=== PATIENT | female | born 1975 | race Caucasian/White ===

== ENCOUNTER 2018-08-09 19:16 | Inpatient (IN) | payer SELFPAY ==
[~2018-08-09] VITALS: Ht 165.1 cm; Wt 67.0 kg
[~2018-08-09 19:16] MED LIST: HYOS0.1216 PO; NITR100C3 PO; PHEN200T27 PO
--- OUTSIDE RECORDS SUMMARY | 2018-08-09 19:21 | XMS REPORT ---
Author Author SHLOMO MOTT [facility] Address [address] [place] [address] Care Team Providers Care Appellate Law Clerk Name Role Phone SHLOMO MOTT Unavailable PROBLEMS Unknown Problems ALLERGIES No Information ENCOUNTERS Encounter Location Date Diagnosis [facility] [id number] [place] [address] 50503- 0111 Oct, [facility] [id number] [place] [address] 28147- 8937 Oct, [facility] [id number] [place] [address]70- 2722 September, [facility] [id number] [place] [address] 39447- 7575 May, [facility] [id number] [place] [address] 96963- 9628 Mar, Bilateral acute otitis media H66.93 ; Vertigo R42 and Acute non-recurrent maxillary sinusitis J01.00 [facility] [id number] [place] [address] 84178- 0679 May, [facility] [id number] [place] [address] 25157- 4634 Mar, [facility] [id number] [place] [address] 17725- 2693 Mar, [facility] [id number] [place] [address] 15218- 7285 Feb, [facility] [id number] [place] [address] 24228- 6698 Apr, [facility] [id number] [place] [address] 09214- 4596 Apr, [facility] [address] [facility] [id number] [place] [address] Apr, [facility] [address] [facility] [id number], [place] [address] Apr, [facility] [address] [facility] [id number], [place] [address] Apr, IMMUNIZATIONS No Known Immunizations SOCIAL HISTORY Never Assessed REASON FOR VISIT Schedule Eye Exam PLAN OF CARE VITAL SIGNS MEDICATIONS Unknown Medications RESULTS No Results PROCEDURES No Known procedures INSTRUCTIONS MEDICATIONS ADMINISTERED No Known Medications
--- OUTSIDE RECORDS SUMMARY | 2018-08-09 19:21 | XMS REPORT ---
Author Author SHLOMO MOTT [facility] Address [address] [place] [address] Care Team Providers Care Manager Architecture Name Role Phone SHLOMO MOTT Unavailable PROBLEMS Unknown Problems ALLERGIES No Information ENCOUNTERS Encounter Location Date Diagnosis [facility] [id number] [place] [address] 97617- [phone] Oct, [facility] [id number] [place] [address] 10102- 9407 Oct, [facility] [id number] [place] [address] 39603- 4543 September, [facility] [id number] [place] [address] 31964- 2196 May, [facility] [id number] [place] [address] 16022- 4879 Mar, Bilateral acute otitis media H66.93 ; Vertigo R42 and Acute non-recurrent maxillary sinusitis J01.00 [facility] [id number] [place] [address] 36504- 6732 May, [facility] [id number] [place] [address] 61596- 9598 Mar, [facility] [id number] [place] [address] 75250- 1237 Mar, [facility] [id number] [place] [address] 23283- 6787 Feb, [facility] [id number] [place] [address] 00467- 8264 Apr, [facility] [id number] [place] [address] 81779- 0106 Apr, [facility] [address] [facility] [id number] [place] [address] 7986 Apr, [facility] [address] [facility] [id number], [place] [address] 49[address] Apr, [facility] [address] [facility] [id number], [place] [address] 3156 Apr, IMMUNIZATIONS No Known Immunizations SOCIAL HISTORY Never Assessed REASON FOR VISIT Eye Exam PLAN OF CARE VITAL SIGNS MEDICATIONS Unknown Medications RESULTS No Results PROCEDURES No Known procedures INSTRUCTIONS MEDICATIONS ADMINISTERED No Known Medications
--- OUTSIDE RECORDS SUMMARY | 2018-08-09 19:21 | XMS REPORT ---
Author Author SHLOMO MOTT [facility] Address [address] [place] [address] Care Team Providers Care Radio Frequency Design Engineer Name Role Phone SHLOMO MOTT Unavailable PROBLEMS Unknown Problems ALLERGIES No Information ENCOUNTERS Encounter Location Date Diagnosis [facility] [id number] [place] [address] 63610- 8626 Oct, [facility] [id number] [place] [address] 26932- 9842 Oct, [facility] [id number] [place] [address] 15196- 1228 September, [facility] [id number] [place] [address] 32142- 1761 May, [facility] [id number] [place] [address] 01419- 7534 Mar, Bilateral acute otitis media H66.93 ; Vertigo R42 and Acute non-recurrent maxillary sinusitis J01.00 [facility] [id number] [place] [address] 84059- 5235 May, [facility] [id number] [place] [address] 98108- 7453 Mar, [facility] [id number] [place] [address] 12944- 1606 Mar, [facility] [id number] [place] [address] 47452- 2691 Feb, [facility] [id number] [place] [address] 82316- 6583 Apr, [facility] [id number] [place] [address] 11268- 2206 Apr, [facility] [address] [facility] [id number] [place] [address]- 0866 Apr, [facility] [address] [facility] [id number], [place] [address] 5486 Apr, [facility] [address] [facility] [id number], [place] [address] 6552 Apr, IMMUNIZATIONS No Known Immunizations SOCIAL HISTORY Never Assessed REASON FOR VISIT Requests return call PLAN OF CARE VITAL SIGNS MEDICATIONS Unknown Medications RESULTS No Results PROCEDURES No Known procedures INSTRUCTIONS MEDICATIONS ADMINISTERED No Known Medications
--- OUTSIDE RECORDS SUMMARY | 2018-08-09 19:21 | XMS REPORT ---
Author Author SHLOMO MOTT [facility] Address [address] [place] [address] Care Team Providers Care Print Binding And Finishing Worker Name Role Phone SHLOMO MOTT Unavailable PROBLEMS Unknown Problems ALLERGIES No Information ENCOUNTERS Encounter Location Date Diagnosis [facility] [id number] [place] [address] 03454- 9500 Oct, [facility] [id number] [place] [address] 17462- 4061 Oct, [facility] [id number] [place] [address] 84973- 8460 September, [facility] [id number] [place] [address] 25275- 0591 May, [facility] [id number] [place] [address] 27585- 1297 Mar, Bilateral acute otitis media H66.93 ; Vertigo R42 and Acute non-recurrent maxillary sinusitis J01.00 [facility] [id number] [place] [address] 30761- 0116 May, [facility] [id number] [place] [address] 94570- 7976 Mar, [facility] [id number] [place] [address] 98460- 4099 Mar, [facility] [id number] [place] [address] 73446- 2106 Feb, [facility] [id number] [place] [address] 71931- 2740 Apr, [facility] [id number] [place] [address] 52780- 4506 Apr, [facility] [address] [facility] [id number] [place] [address]- 4286 Apr, [facility] [address] [facility] [id number], [place] [address]- 9976 Apr, [facility] [address] [facility] [id number], [place] [address]- 6879 Apr, IMMUNIZATIONS No Known Immunizations SOCIAL HISTORY Never Assessed REASON FOR VISIT Requests return call PLAN OF CARE VITAL SIGNS MEDICATIONS Unknown Medications RESULTS No Results PROCEDURES No Known procedures INSTRUCTIONS MEDICATIONS ADMINISTERED No Known Medications
--- OUTSIDE RECORDS SUMMARY | 2018-08-09 19:22 | XMS REPORT | Continuity of Care Document ---
Demographics Preferred Language Unknown Marital Status Unknown Christianity Affiliation Unknown Race Unknown Ethnic Group Unknown Author Author [facility] Address Unknown Phone Unavailable Allergies There is no data. Medications There is no data. Problems Date Dx Coded Attending Type Code Diagnosis Diagnosed By 05/08/2011 599.70 HEMATURIA 05/08/2011 724.2 BACK PAIN, LOWER 05/08/2011 599.70 HEMATURIA 05/08/2011 724.2 BACK PAIN, LOWER 05/11/2011 041.02 GBS - UNSPECIFIED SITE 05/11/2011 041.02 GBS - UNSPECIFIED SITE Procedures There is no data. Results There is no data. Encounters ACCT No. Visit Date/Time Discharge Status Pt. Type Provider Facility Loc./Unit Complaint [id number] 05/08/2011 14:27:00 05/08/2011 23:59:59 [facility] Outpatient [id number] 05/08/2011 14:27:00 05/08/2011 23:59:59 [facility] Out[facility] [id number] 10/27/2017 13:40:00 10/27/2017 23:59:59 [facility] Outpatient SHLOMO MOTT [facility]
--- NOTE | 2018-08-09 19:54 | ED EENT ---
History of Present Illness General Stated Complaint: THROAT PAIN AND THROAT SWELLING Source: patient Exam Limitations: no limitations History of Present Illness Date Seen by Provider: Aug 09, 2018 Time Seen by Provider: 19:52 Initial Comments To ER per private vehicle from urgent care with reports of left sided throat pain and swelling for 2 days. She presented there tonight for this complaint and was referred here to the emergency room due to concerns for peritonsillar abscess. No fevers or chills. She is not currently on any antibiotics. Timing/Duration: abrupt Severity: moderate Location: throat Prearrival Treatment: no prearrival treatment Associated Symptoms: denies symptoms Allergies and Home Medications Allergies Coded Allergies: No Known Drug Allergies (Unverified , 08/17/11) Home Medications Hyoscyamine Sulfate 0.125 Mg Tab, 1-2 EACH PO Q4HR PRN, (Reported) Nitrofurantoin Macrocrystal 100 Mg Capsule, 1 CAP PO NEEDED, (Reported) Clcr <60 mL/minute: Contraindicated Phenazopyridine Hcl 200 Mg Tablet, 1 EACH PO TID PRN, (Reported) Patient Home Medication List Home Medication List Reviewed: Yes Review of Systems Review of Systems Constitutional: see HPI; No chills, No fever Eyes: No Symptoms Reported Ears: No Symptoms Reported Nose: no symptoms reported Mouth: no symptoms reported Throat: see HPI, pain, swelling Respiratory: no symptoms reported Cardiovascular: no symptoms reported Musculoskeletal: no symptoms reported Past Wollskx-Kxetda-Mbxnuw Hx Patient Social History Recent Foreign Travel: No Contact w/Someone Who Travel: No Immunizations Up To Date Date of Influenza Vaccine: Feb 21, 2011 Physical Exam Height, Weight, BMI Height: '" Weight: lbs. oz. kg; BMI Method:Stated General Appearance: WD/WN, no apparent distress Eyes: bilateral eye normal inspection, bilateral eye PERRL, bilateral eye EOMI Ears: bilateral ear auricle normal, bilateral ear canal normal, bilateral ear TM normal Mouth/Throat: other (she does have a hot potato voice. The uvula is edematous, just anterior to the superior aspect of left tonsil on the soft palate is erythematous and edema to this as well. No stridor. She is swallowing her own secretions. No trismus, she is able to fully open her mouth and allow good exam. ) Neck: non-tender, full range of motion; No lymphadenopathy (R), No lymphadenopathy (L) Respiratory: no respiratory distress, no accessory muscle use Neurologic/Psychiatric: alert, normal mood/affect, oriented x 3 Skin: normal color, warm/dry Procedures/Interventions I&D : Progress Left peritonsillar abscess area was anesthetized topically with Hurricaine spray. A 27-gauge needle was then attached to a 3 mL syringe full of 2% lidocaine with epinephrine 1 100,000. 0.5 mL of this was used to anesthetize the tissues overlying the area of fluctuance. An 18-gauge 1/2 inch needle guard at 1 cm was then inserted into the area of maximum fluctuance, only a small amount, less than 0.25 mL of purulent bloody material was aspirated. Culture of this was collected and sent to lab. At the end, bleeding was minimal and she's gargling with ice water Progress/Results/Core Measures Results/Orders Lab Results Laboratory Tests Test 08/09/18 20:01 Range/Units White Blood Count 17.9 H 4.3-11.0 10^3/uL Red Blood Count 4.01 L 4.35-5.85 10^6/uL Hemoglobin 7.0 L 11.5-16.0 G/DL Hematocrit 26 L 35-52 % Mean Corpuscular Volume 64 L 80-99 FL Mean Corpuscular Hemoglobin 17 L 25-34 PG Mean Corpuscular Hemoglobin Concent 27 L 32-36 G/DL Red Cell Distribution Width 21.1 H 10.0-14.5 % Platelet Count 393 130-400 10^3/uL Mean Platelet Volume 8.4 7.4-10.4 FL Neutrophils (%) (Auto) 85 H 42-75 % Lymphocytes (%) (Auto) 8 L 12-44 % Monocytes (%) (Auto) 7 0-12 % Eosinophils (%) (Auto) 0 0-10 % Basophils (%) (Auto) 0 0-10 % Neutrophils # (Auto) 15.2 H 1.8-7.8 X 10^3 Lymphocytes # (Auto) 1.5 1.0-4.0 X 10^3 Monocytes # (Auto) 1.2 H 0.0-1.0 X 10^3 Eosinophils # (Auto) 0.0 0.0-0.3 10^3/uL Basophils # (Auto) 0.0 0.0-0.1 10^3/uL Neutrophils % (Manual) 87 % Lymphocytes % (Manual) 8 % Monocytes % (Manual) 3 % Eosinophils % (Manual) 1 % Basophils % (Manual) 0 % Band Neutrophils 1 % Hypochromasia MODERATE Anisocytosis MODERATE Microcytosis MARKED Spherocytes MODERATE Elliptocytes SLIGHT Absolute Reticulocyte Count 84 24-90 10e9/L Percent Reticulocyte Count 2.03 0.50-2.40 % Sodium Level 137 135-145 MMOL/L Potassium Level 3.7 3.6-5.0 MMOL/L Chloride Level 105 98-107 MMOL/L Carbon Dioxide Level 21 21-32 MMOL/L Anion Gap 11 5-14 MMOL/L Blood Urea Nitrogen 9 7-18 MG/DL Creatinine 0.84 0.60-1.30 MG/DL Estimat Glomerular Filtration Rate > 60 BUN/Creatinine Ratio 11 Glucose Level 128 H 70-105 MG/DL Lactic Acid Level 1.36 0.50-2.00 MMOL/L Calcium Level 9.5 8.5-10.1 MG/DL Corrected Calcium 9.3 8.5-10.1 MG/DL Total Bilirubin 0.6 0.1-1.0 MG/DL Aspartate Amino Transf (AST/SGOT) 14 5-34 U/L Alanine Aminotransferase (ALT/SGPT) 12 0-55 U/L Alkaline Phosphatase 77 40-136 U/L Total Protein 7.9 6.4-8.2 GM/DL Albumin 4.3 3.2-4.5 GM/DL Serum Test, Qualitative NEGATIVE NEGATIVE My Orders Orders - LIVAN GUPTA APRN Ct Neck (Soft Tissue) W (08/09/18 19:50) Cbc With Automated Diff (08/09/18 19:50) Comprehensive Metabolic Panel (08/09/18 19:50) Hcg,Qualitative Serum (08/09/18 19:50) Iv Heplock-Insert (Order) (08/09/18 19:50) Clindamycin 900 Mg/50 Ml Ivpb (Cleocin P (08/09/18 20:00) Dexamethasone Injection (Decadron Inject (08/09/18 20:00) Ns Iv 1000 Ml (Sodium Chloride 0.9%) (08/09/18 20:00) Blood Culture (08/09/18 20:03) Lactic Acid Analyzer (08/09/18 20:03) Iohexol Injection (Omnipaque 350 Mg/Ml 1 (08/09/18 20:15) Received Contrast (Hold Metformin- Contr (08/09/18 20:15) Manual Differential (08/09/18 20:01) Red Cells Leukocytes Reduced (08/09/18 20:42) Type And Screen (08/09/18 20:42) Anemia Analyzer (08/09/18 20:01) Fentanyl Injection (Sublimaze Injection (08/09/18 21:15) Lidocaine/Epi 2% 1:100,000 (Xylocaine/Ep (08/09/18 21:15) Benzocaine Extension Tube (Hurricaine Ex (08/09/18 21:28) Medications Given in ED Current Medications Medications Dose Ordered Sig/Scar Route Start Time Stop Time Status Last Admin Dose Admin Benzocaine 1 ea STK-MED ONCE .ROUTE 08/09/18 21:28 08/09/18 21:31 DC 08/09/18 21:31 1 EA Clindamycin Phosphate/Dextrose 50 ml @ 100 mls/hr ONCE ONCE IV 08/09/18 20:00 08/09/18 20:29 DC 08/09/18 20:31 100 MLS/HR Dexamethasone Sodium Phosphate 10 mg ONCE ONCE IV 08/09/18 20:00 08/09/18 20:01 DC 08/09/18 20:34 10 MG Fentanyl Citrate 50 mcg ONCE ONCE IVP 08/09/18 21:15 08/09/18 21:16 DC 08/09/18 21:21 50 MCG Iohexol 75 ml ONCE ONCE IV 08/09/18 20:15 08/09/18 20:18 DC 08/09/18 20:53 75 ML Lidocaine/ Epinephrine 1 ml ONCE ONCE INJ 08/09/18 21:15 08/09/18 21:16 DC 08/09/18 21:21 1 ML Diagnostic Imaging Diagonstic Imaging: CT Comments NAME: TRINA MEDINA Suraj [facility] REC#: [id number] PT STATUS: REG ER : 1975 PHYSICIAN: LIVAN GUPTA APRN ADMIT DATE: 08/09/18/ER Draft Date of Exam:08/09/18 CT NECK (SOFT TISSUE) W PROCEDURE: CT neck soft tissue with contrast. TECHNIQUE: Multiple contiguous axial images were obtained through the neck after the administration of contrast. INDICATION: Difficulty swallowing. COMPARISON: None available. FINDINGS: Peripheral enhancing fluid collection is present adjacent to the left palatine tonsils. This collection measures approximately 1.3 x 1.8 x 2.4 cm and is compatible with peritonsillar abscess. This causes mild effacement of the oropharynx but the oropharyngeal airway remains patent. There is no fluid extending into the retropharyngeal space or upper mediastinum. Multiple enlarged bilateral cervical lymph nodes are active in nature. The largest on the left is a jugulodigastric lymph node measuring 1.3 x 1.1 cm. Thyroid is normal. Lung apices are clear. No concerning osseous lesion in the cervical spine. Orbits are normal where visualized. Trace fluid within the right sphenoid sinus. Mastoid air cells are clear. IMPRESSION: 1. Left peritonsillar abscess mildly narrows but does not compromise the oropharyngeal airway. 2. Bilateral cervical lymphadenopathy should be reactive in nature. Dictated on workstation # [id number] Dict: 08/09/[id number] Trans: 08/09/182125 [facility] [id number] Interpreted by: BRIDGETT ART MD Electronically signed by: Departure Communication (Admissions) Time/Spoke to Admitting Phy: 21:[address] Duong. We'll admit, consult Dr. Albrecht from your nose and throat. Time/Spoke to Consulting Phy: 21:[address] Albrecht, agrees to consult and he will see the patient sometime tomorrow, recommends cefuroxime and Solu-Medrol. Impression Primary Impression: Peritonsillar abscess Additional Impression: Anemia Qualified Codes: D64.9 - Anemia, unspecified Disposition: ADMITTED INPATIENT Condition: Stable Admissions Decision to Admit Reason: Admit from ER (General) Decision to Admit/Date: Aug 09, 2018 Time/Decision to Admit Time: 21:10 Departure-Patient Inst. Referrals: NO,LOCAL PHYSICIAN (PCP) Primary Care Physician LIVAN GUPTA APRN Aug 09, 2018 19:54
[2018-08-09] MEDS ORDERED: NS IV 1000 ML 1,000 ML IV SCH (20:00)
[2018-08-09] MEDS ORDERED: DEXAMETHASONE 10 MG/ML (DECADRON) 1 ML VIAL IV ONE (20:00)
[2018-08-09] MEDS ORDERED: CLINDAMYCIN 900 MG/50 ML IVPB 50 ML IV ONE (20:00)
[2018-08-09] MEDS ORDERED: IOHEXOL 350 MG/ML 100 ML (OMNIPAQUE 350) VIAL IV ONE (20:15)
[2018-08-09] MEDS ORDERED: HOLD METFORMIN - RECEIVED CONTRAST 20 ML VIAL IV SCH (20:15)
[2018-08-09 20:16] LABS: BASOPHILS % (AUTO) 0 % (0-10); EOSINOPHILS % (AUTO) 0 % (0-10); HEMATOCRIT 26 % (35-52); LYMPHOCYTES # (AUTO) 1.5 X 10^3 (1.0-4.0); LYMPHOCYTES % (AUTO) 8 % (12-44); MEAN CORPUSCULAR HEMOGLOBIN 17 PG (25-34); MEAN CORPUSCULAR HGB CONC 27 G/DL (32-36); MEAN CORPUSCULAR VOLUME 64 FL (80-99); MEAN PLATELET VOLUME 8.4 FL (7.4-10.4); MONOCYTES # (AUTO) 1.2 X 10^3 (0.0-1.0); MONOCYTES % (AUTO) 7 % (0-12); NEUTROPHILS # (AUTO) 15.2 X 10^3 (1.8-7.8); NEUTROPHILS % (AUTO) 85 % (42-75); PLATELET COUNT 393 10^3/uL (130-400); RED CELL DISTRIBUTION WIDTH 21.1 % (10.0-14.5); WHITE BLOOD COUNT 17.9 10^3/uL (4.3-11.0)
[2018-08-09 20:31] LABS: ALANINE AMINOTRANSFERASE 12 U/L (0-55); ALBUMIN 4.3 GM/DL (3.2-4.5); ALKALINE PHOSPHATASE 77 U/L (40-136); BILIRUBIN,TOTAL 0.6 MG/DL (0.1-1.0); BUN/CREATININE RATIO 11; CALCIUM 9.5 MG/DL (8.5-10.1); CARBON DIOXIDE 21 MMOL/L (21-32); CHLORIDE 105 MMOL/L (98-107); CREATININE SERUM 0.84 MG/DL (0.60-1.30); GFR ESTIMATED > 60; GLUCOSE 128 MG/DL (70-105); POTASSIUM 3.7 MMOL/L (3.6-5.0); SODIUM 137 MMOL/L (135-145); TOTAL PROTEIN 7.9 GM/DL (6.4-8.2)
[2018-08-09 20:32] LABS: BAND NEUTROPHILS 1 %; BASOPHILS % (MANUAL) 0 %; EOSINOPHILS % (MANUAL) 1 %; LYMPHOCYTES % (MANUAL) 8 %; MONOCYTES % (MANUAL) 3 %; NEUTROPHILS % (MANUAL) 87 %
[2018-08-09 20:33] LABS: ANISOCYTOSIS MODERATE; ELLIPT/OVALOCYTES SLIGHT; HYPOCHROMASIA MODERATE; MICROCYTOSIS MARKED; SPHEROCYTES MODERATE
[2018-08-09 21:01] LABS: HEMATOCRIT 26 % (35-52); MEAN CORPUSCULAR HEMOGLOBIN 17 PG (25-34); MEAN CORPUSCULAR VOLUME 64 FL (80-99); WHITE BLOOD COUNT 17.9 10^3/uL (4.3-11.0)
[2018-08-09 21:02] LABS: BASOPHILS % (AUTO) 0 % (0-10); EOSINOPHILS % (AUTO) 0 % (0-10); LYMPHOCYTES # (AUTO) 1.5 X 10^3 (1.0-4.0); LYMPHOCYTES % (AUTO) 8 % (12-44); MEAN CORPUSCULAR HGB CONC 27 G/DL (32-36); MEAN PLATELET VOLUME 8.4 FL (7.4-10.4); MONOCYTES # (AUTO) 1.2 X 10^3 (0.0-1.0); MONOCYTES % (AUTO) 7 % (0-12); NEUTROPHILS # (AUTO) 15.2 X 10^3 (1.8-7.8); NEUTROPHILS % (AUTO) 85 % (42-75); PLATELET COUNT 393 10^3/uL (130-400); RED CELL DISTRIBUTION WIDTH 21.1 % (10.0-14.5)
[2018-08-09 21:03] LABS: ANISOCYTOSIS MODERATE; BAND NEUTROPHILS 1 %; BASOPHILS % (MANUAL) 0 %; ELLIPT/OVALOCYTES SLIGHT; EOSINOPHILS % (MANUAL) 1 %; HYPOCHROMASIA MODERATE; LYMPHOCYTES % (MANUAL) 8 %; MICROCYTOSIS MARKED; MONOCYTES % (MANUAL) 3 %; NEUTROPHILS % (MANUAL) 87 %; SPHEROCYTES MODERATE
[2018-08-09 21:07] LABS: ABSOLUTE RETIC # 84 10e9/L (24-90); RETICULOCYTE % 2.03 % (0.50-2.40)
[2018-08-09] MEDS ORDERED: LIDOCAINE/EPI 2% 1:100,00 (XYLOCAINE) 20 ML VIAL INJ ONE (21:15)
[2018-08-09] MEDS ORDERED: fentaNYL INJECTION 100 MCG/2 ML AMP IVP ONE ×2 (21:15→22:15)
--- NOTE | 2018-08-09 21:26 | Diagnostic Imaging Report ---
PROCEDURE: CT neck soft tissue with contrast. TECHNIQUE: Multiple contiguous axial images were obtained through the neck after the administration of contrast. INDICATION: Difficulty swallowing. COMPARISON: None available. FINDINGS: Peripheral enhancing fluid collection is present adjacent to the left palatine tonsils. This collection measures approximately 1.3 x 1.8 x 2.4 cm and is compatible with peritonsillar abscess. This causes mild effacement of the oropharynx but the oropharyngeal airway remains patent. There is no fluid extending into the retropharyngeal space or upper mediastinum. Multiple enlarged bilateral cervical lymph nodes are active in nature. The largest on the left is a jugulodigastric lymph node measuring 1.3 x 1.1 cm. Thyroid is normal. Lung apices are clear. No concerning osseous lesion in the cervical spine. Orbits are normal where visualized. Trace fluid within the right sphenoid sinus. Mastoid air cells are clear. IMPRESSION: 1. Left peritonsillar abscess mildly narrows but does not compromise the oropharyngeal airway. 2. Bilateral cervical lymphadenopathy should be reactive in nature. Dictated by: Dictated on workstation # [id number]
[2018-08-09] MEDS ORDERED: HURRICAINE EXT TUBE (BENZOCAINE) ONE (21:28)
--- OUTSIDE RECORDS SUMMARY | 2018-08-09 22:37 | XMS REPORT | Continuity of Care Document ---
Demographics Preferred Language Unknown Marital Status Unknown Restoration Affiliation Unknown Race Unknown Ethnic Group Unknown Author Author [facility] Address Unknown Phone Unavailable Allergies [...] Status Pt. Type Provider Facility Loc./Unit Complaint [id number] 05/08/2011 14:27:00 05/08/2011 23:59:59 [facility] Outpatient [id number] 05/08/2011 14:27:00 05/08/2011 23:59:59 [facility] Outpatient [id number] 10/27/2017 13:40:00 10/27/2017 23:59:59 [facility] Outpatient SHLOMO MOTT [facility]
[2018-08-10] VITALS (7 sets, daily range): BP systolic 104–131; BP diastolic 63–78
[2018-08-10] MEDS ORDERED: ONDANSETRON 4 MG/2 ML (SDV) Z0FRAN IV PRN (00:15)
[2018-08-10] MEDS: NS IV 1000 ML 1,000 ML IV SCH ×4 (00:22→23:52)
[2018-08-10] MEDS: CEFUROXIME 1,500 MG/SWFI 15 ML IV PUSH IV SCH ×8 (00:24→23:52)
--- NOTE | 2018-08-10 00:55 | NUR ---
TRINA MEDINA admitted to room 411-1, with an admitting diagnosis of PERITONSILLAR ABSCESS AND ANEMIA, on 08/09/18 from ED via , accompanied by STAFF.TRINA MEDINA introduced to surroundings, call light, bed controls, phone, TV, temperature control, lights, meal times, smoking policy, visitor policy, side rail policy, bathrooms and showers. Patient Rights given to patient in the handbook. TRINA MEDINA verbalizes understanding that [facility] is not responsible for the loss or damage to any personal effects or valuables that are kept in the patients possession during their hospitalization. PLANS OF CARE DISCUSSED WITH PATIENT AND VERBALIZES UNDERSTANDING. TRINA MEDINA verbalizes understanding of Interdisciplinary Patient Education. Patient and/or family were informed about the Rapid Response Team and its purpose.
[2018-08-10] MEDS: ACETAMINOPHEN 325 MG TABLET PO PRN ×3 (04:01→21:29)
[2018-08-10 04:32] LABS: BASOPHILS % (AUTO) 0 % (0-10); EOSINOPHILS # (AUTO) 0.1 10^3/uL (0.0-0.3); EOSINOPHILS % (AUTO) 1 % (0-10); HEMATOCRIT 27 % (35-52); LYMPHOCYTES # (AUTO) 0.5 X 10^3 (1.0-4.0); LYMPHOCYTES % (AUTO) 3 % (12-44); MEAN CORPUSCULAR HEMOGLOBIN 17 PG (25-34); MEAN CORPUSCULAR HGB CONC 26 G/DL (32-36); MEAN CORPUSCULAR VOLUME 64 FL (80-99); MEAN PLATELET VOLUME 9.2 FL (7.4-10.4); MONOCYTES # (AUTO) 0.1 X 10^3 (0.0-1.0); MONOCYTES % (AUTO) 0 % (0-12); NEUTROPHILS # (AUTO) 16.5 X 10^3 (1.8-7.8); NEUTROPHILS % (AUTO) 96 % (42-75); PLATELET COUNT 370 10^3/uL (130-400); RED CELL DISTRIBUTION WIDTH 21.5 % (10.0-14.5); WHITE BLOOD COUNT 17.2 10^3/uL (4.3-11.0)
[2018-08-10 04:50] LABS: ALANINE AMINOTRANSFERASE 13 U/L (0-55); ALBUMIN 4.1 GM/DL (3.2-4.5); ALKALINE PHOSPHATASE 73 U/L (40-136); BILIRUBIN,TOTAL 0.4 MG/DL (0.1-1.0); BUN/CREATININE RATIO 12; CALCIUM 9.6 MG/DL (8.5-10.1); CARBON DIOXIDE 20 MMOL/L (21-32); CHLORIDE 107 MMOL/L (98-107); CREATININE SERUM 0.78 MG/DL (0.60-1.30); GFR ESTIMATED > 60; GLUCOSE 145 MG/DL (70-105); POTASSIUM 4.1 MMOL/L (3.6-5.0); SODIUM 138 MMOL/L (135-145); TOTAL PROTEIN 7.8 GM/DL (6.4-8.2)
[2018-08-10] MEDS: methylPREDNISolone 125 MG (Solu-MEDROL) VIAL IV SCH ×3 (05:38→21:27)
--- NOTE | 2018-08-10 05:49 | Progress Note-Standard ---
Standard Progress Note Progress Notes/Assess & Plan Date Seen by a Provider: Aug 10, 2018 Time Seen by a Provider: 06:00 Progress/Assessment & Plan ENT-Trena-08/10 Patient/seen and evaluated Left Peritonsillar Abscess-some better with steroids and antibiotics Significant Iron deficiency anemia with hgb of 7.0 and MCV of 64-needs work-up and treatment exam -no trismus-swollen left periotnsilalr region-able to swallow without problems will check on later today and see if better -if stil lswollen then will do I/D in room or under anes-think she would toelrate it in the room under local-if we drain later today then could potentially go home on with oral ceftin and a pred taper Final Diagnosis Left Peritonsilalr ABscess Zyohfb-naamutw-Qgmpykkeigh Iron Deficiency (probable) Focused Exam Lactate Level 08/09/18 20:01: Lactic Acid Level 1.36 ALLIE SMITH MD Aug 10, 2018 05:49
[2018-08-10] MEDS ORDERED: FLU QUADRIvalent (5+ YOA) 2018-2019 (AFLURIA) 0.5 ML IM ONE (07:00)
[2018-08-10] MEDS ORDERED: IBUP-30 PO (08:55)
--- NOTE | 2018-08-10 09:04 | History & Physical-Hospitalist ---
History of Present Illness Source: patient Date Seen 08/10/18 Time Seen by a Provider: 09:15 Attending Physician Casper Duong MD PCP No,Local Physician Referring Physician Date of Admission Aug 09, 2018 at 20:45 Home Medications & Allergies Home Medications Reviewed patient Home Medication Reconciliation performed by pharmacy medication reconciliations library technician and/or nursing. Patients Allergies have been reviewed. Allergies Allergies Coded Allergies No Known Drug Allergies (Unverified08/17/11) Past Pxrmlhl-Dkfiyp-Vevihv Hx Patient Social History Recent Foreign Travel: No Contact w/other who traveled: No Recent Hopitalizations: Yes Recent Infectious Disease Expo: No Immunizations Up To Date Date of Influenza Vaccine: Feb 21, 2011 Past Medical History : No Physical Exam Physical Exam Vital Signs Vital Signs - First Documented 08/09/18 19:49 Temp 99.4 Pulse 118 Resp 20 B/P (MAP) 116/69 (85) Pulse Ox 100 O2 Delivery Room Air Capillary Refill : Less Than 3 Seconds Height, Weight, BMI Height: 5'5.00" Weight: 147lbs. 9.6oz. 66.228274vt; 24.6 BMI Method:Stated Results Results/Procedures Labs Laboratory Tests 08/09/18 20:01 08/10/18 03:40 Patient resulted labs reviewed. Clinical Quality Measures DVT/VTE Risk/Contraindication: Risk Factor Score Per Nursin RFS Level Per Nursing on Admit: 2=Moderate SAM MOON DO Aug 10, 2018 09:04
--- NOTE | 2018-08-10 14:30 | NUR ---
TYLENOL 650 MG PO FOR PAIN.
--- NOTE | 2018-08-10 15:19 | History & Physical-Hospitalist ---
History of Present Illness HPI/Chief Complaint The patient is a 43-year-old white female who presented to the emergency room yesterday with a complaint of a severe sore throat. She stated it was difficulty to swallow. She had not noted a fever. She thought that the discomfort had begun 24-48 hours prior to presentation. Workup showed evidence of early abscess formation in the area of the left tonsil. Date Seen 08/10/18 Time Seen by a Provider: 15:15 Attending Physician Casper Cyr MD PCP No,Local Physician Referring Physician Date of Admission Aug 09, 2018 at 20:45 Home Medications & Allergies Home Medications Reviewed patient Home Medication Reconciliation performed by pharmacy medication reconciliations husbandry technician and/or nursing. Patients Allergies have been reviewed. Allergies Allergies Coded Allergies No Known Drug Allergies (Unverified08/17/11) Past Gfpbfpv-Aygnar-Lujgfc Hx Past Med/Social Hx: Reviewed Nursing Past Med/Soc Hx Patient Social History Recent Foreign Travel: No Contact w/other who traveled: No Recent Hopitalizations: Yes Recent Infectious Disease Expo: No Immunizations Up To Date Date of Influenza Vaccine: Feb 21, 2011 Past Medical History : No Review of Systems Constitutional: chills EENTM: see HPI, throat swelling Respiratory: no symptoms reported Cardiovascular: no symptoms reported Gastrointestinal: no symptoms reported Genitourinary: no symptoms reported Musculoskeletal: no symptoms reported Skin: no symptoms reported Psychiatric/Neurological: No Symptoms Reported Physical Exam Physical Exam Vital Signs Vital Signs - First Documented 08/09/18 19:49 Temp 99.4 Pulse 118 Resp 20 B/P (MAP) 116/69 (85) Pulse Ox 100 O2 Delivery Room Air Capillary Refill : Less Than 3 Seconds Height, Weight, BMI Height: 5'5.00" Weight: 147lbs. 9.6oz. 66.458610nj; 24.6 BMI Method:Stated General Appearance: Mild Distress HEENT: Other (swelling and erythema in the area of the left tonsillar pillar) Neck: Normal Inspection Respiratory: Chest Non Tender, Lungs Clear, Normal Breath Sounds, No Accessory Muscle Use, No Respiratory Distress Cardiovascular: Regular Rate, Rhythm, No Edema, No Gallop, No JVD, No Murmur, Normal Peripheral Pulses Gastrointestinal: Normal Bowel Sounds Back: Normal Inspection, No CVA Tenderness, No Vertebral Tenderness Extremity: Normal Capillary Refill, Normal Inspection, Normal Range of Motion, Non Tender, No Calf Tenderness, No Pedal Edema Skin: Normal Color, Warm/Dry Lymphatic: No Adenopathy Results Results/Procedures Labs Laboratory Tests 08/09/18 20:01 08/10/18 03:40 Patient resulted labs reviewed. Assessment/Plan Admission Diagnosis Left peritonsillar abscess Admission Status: Observation Assessment and Plan IV antibiotics ENT consult Clinical Quality Measures DVT/VTE Risk/Contraindication: Risk Factor Score Per Nursin RFS Level Per Nursing on Admit: 2=Moderate CASPER CYR MD Aug 10, 2018 15:19
--- NOTE | 2018-08-10 16:15 | NUR ---
C/O NAUSEA. ZOFRAN 8MG IV FOR NAUSEA.
--- NOTE | 2018-08-10 21:30 | NUR ---
PT C/O HEADACHE AND REQUESTED TYLENOL. ADMIN 650 MG PER ORDERS
--- NOTE | 2018-08-10 22:17 | NUR ---
PT STATED SHE VOMITED AGAIN. SHE STATES SHE GETS HEART BURN AT [facility] AND THIS OFTEN HAPPENS. SHE STATES SHE WAS TRYING TO HAVE A BM AND WITH THE HEART BURN SHE VOMITED. DECLINED TO HAVE ZOFRAN AT THIS TIME.
[2018-08-11] VITALS: BP 99/58
[2018-08-11 04:28] VITALS: BP 111/57
[2018-08-11] MEDS: methylPREDNISolone 125 MG (Solu-MEDROL) VIAL IV SCH (05:53)
--- NOTE | 2018-08-11 06:53 | Progress Note-Standard ---
Standard Progress Note Progress Notes/Assess & Plan Date Seen by a Provider: Aug 11, 2018 Time Seen by a Provider: 06:00 Progress/Assessment & Plan SERGE-Trena-08/10 Patient/seen and evaluated Left Peritonsillar Abscess-some better with steroids and antibiotics Significant Iron deficiency anemia with hgb of 7.0 and MCV of 64-needs work-up and treatment exam -no trismus-swollen left periotnsilalr region-able to swallow without problems will check on later today and see if better -if stil lswollen then will do I/D in room or under anes-think she would toelrate it in the room under local-if we drain later today then could potentially go home on with oral ceftin and a pred taper ENT-Trena pasts to see eugenen on 08/10 i nt afternoon-doing better still with swelling in left periotonsilalr region rec -i/d-patient refused as she was symptomatically better would send home on antibotics and steroids and then see back in two weeks in the office she understands there is a chance the symptoms may bounce back and if so her only option is to I/D it Focused Exam Lactate Level 08/09/18 20:01: Lactic Acid Level 1.36 ALLIE SMITH MD Aug 11, 2018 06:53
[2018-08-11] MEDS: NS IV 1000 ML 1,000 ML IV SCH (07:50)
[2018-08-11] MEDS: CEFUROXIME 1,500 MG/SWFI 15 ML IV PUSH IV SCH ×2 (07:50)
[2018-08-11 08:00] VITALS: BP 116/71
[2018-08-11] MEDS ORDERED: CEFU500T63 PO (09:26)
[2018-08-11] MEDS ORDERED: PRED10TA22 PO (09:26)
--- NOTE | 2018-08-11 09:27 | Discharge Summary-Hospitalist ---
Diagnosis/Chief Complaint Date of Admission Aug 09, 2018 at 20:45 Date of Discharge Discharge Date: Aug 11, 2018 Admission Diagnosis Left peritonsillar abscess Discharge Summary Discharge Physical Exam Allergies: Coded Allergies: No Known Drug Allergies (Unverified , 08/17/11) Vitals & I&Os Vital Signs Date Time Temp Pulse Resp B/P (MAP) Pulse Ox O2 Delivery O2 Flow Rate FiO2 08/11/18 11:50 79 18 116/71 96 Room Air 08/11/18 08:00 99.3 General Appearance: No Apparent Distress, WD/WN, Chronically ill Neurologic/Psychiatric: Alert, Oriented x3, No Motor/Sensory Deficits, Normal Mood/Affect Hospital Course Was the Problem List Reviewed?: Yes Hospital course: Pt had a short hospital course, she was admitted for left peritonsillar abscess, Dr. Albrecht evaluated her and placed her on empiric antibiotics and steroids which resulted in improvement in the abscess and did not require an I&D but certainly could in the near future, so she lakisha be discharged on Ceftin and continue on a Prednisone taper to decrease the swelling and Pt was agreeable for discharge. Labs (last 24 hrs) Microbiology 08/09/18 Blood Culture - Preliminary, Resulted No growth 08/09/18 Gram Stain - Final, Resulted 08/09/18 Anaerobic Culture - Preliminary, Resulted No anaerobes isolated 08/09/18 Wound Culture - Preliminary, Resulted Mixed Bacterial Nivia With Patient resulted labs reviewed. Discussion & Recommendations Discharge Planning: <30 minutes discharge planning Discharge Home Medications: Active Scripts Active Prednisone 10 Mg Tab.ds.pk 10 Mg PO DAILY Take 6 tabs(60mg)daily,decrease by 1 tab(10MG)daily. Cefuroxime (Cefuroxime Axetil) 500 Mg Tablet 500 Mg PO BID Reported Advil (Ibuprofen) 200 Mg Tablet 400 Mg PO Q6H PRN Instructions to patient/family Please see electronic discharge instructions given to patient. Clinical Quality Measures DVT/VTE Risk/Contraindication: Risk Factor Score Per Nursin RFS Level Per Nursing on Admit: 2=Moderate SAM MOON DO Aug 11, 2018 09:27
[2018-08-11 11:50] VITALS: BP 116/71
== END 2018-08-11 10:59 | disposition home or self-care (01) | DRG 134 ==
LOC: EDUNIT# 19:16 → ER 19:18 → 4TH 20:45
PROVIDERS: ADMIT Internal Medicine; ATTEND Internal Medicine
PROC: 0C9PXZZ Drainage of Tonsils, External Approach (ICD-10-PCS; principal; 2018-08-09)
DX: J36 Peritonsillar abscess (principal); D50.9 Iron deficiency anemia, unspecified
CPT/HCPCS: 36415; 70491; 80053; 82728; 83540; 83605; 84703; 85007; 85025; 85027; 85045; 86850; 86900; 86901; 86920; 87040; 87070; 87075; 87205; 96361; 96374; 96375; 96376

== ENCOUNTER 2022-02-04 13:24 | Observation (INO) | payer SELFPAY ==
[~2022-02-04] VITALS: Ht 165.1 cm; Wt 72.7 kg
[2022-02-04] VITALS (13 sets, daily range): BP systolic 108–130; BP diastolic 62–74
[~2022-02-04 13:24] MED LIST changes: +CEFU500T63 PO; +IBUP-30 PO; +PRED10TA22 PO
[2022-02-04 13:43] LABS: EOSINOPHILS # (AUTO) 0.1 10^3/uL (0.0-0.3); LYMPHOCYTES # (AUTO) 0.8 10^3/uL (1.0-4.0)
[2022-02-04 13:45] LABS: BASOPHILS % (AUTO) 0 % (0-10); EOSINOPHILS % (AUTO) 1 % (0-10); LYMPHOCYTES % (AUTO) 6 % (12-44); MEAN CORPUSCULAR HEMOGLOBIN 16 pg (25-34); MEAN CORPUSCULAR HGB CONC 25 g/dL (32-36); MEAN CORPUSCULAR VOLUME 63 fL (80-99); MONOCYTES # (AUTO) 0.9 10^3/uL (0.0-1.0); MONOCYTES % (AUTO) 7 % (0-12); NEUTROPHILS # (AUTO) 11.8 10^3/uL (1.8-7.8); NEUTROPHILS % (AUTO) 86 % (42-75); WHITE BLOOD COUNT 13.7 10^3/uL (4.3-11.0)
[2022-02-04 13:53] LABS: HEMOGLOBIN 3.8 g/dL (11.5-16.0)
[2022-02-04 13:54] LABS: HEMATOCRIT 16 % (35-52); PLATELET COUNT 108 10^3/uL (130-400)
[2022-02-04 14:00] LABS: ALBUMIN 4.1 GM/DL (3.2-4.5)
[2022-02-04 14:01] LABS: POTASSIUM 3.3 MMOL/L (3.6-5.0)
[2022-02-04 14:02] LABS: CALCIUM 8.8 MG/DL (8.5-10.1)
[2022-02-04 14:03] LABS: TOTAL PROTEIN 7.3 GM/DL (6.4-8.2)
[2022-02-04 14:05] LABS: BILIRUBIN,TOTAL 0.4 MG/DL (0.1-1.0)
[2022-02-04 14:07] LABS: CREATININE SERUM 0.75 MG/DL (0.60-1.30)
[2022-02-04 14:29] LABS: EOSINOPHILS % (MANUAL) 1 %; LYMPHOCYTES % (MANUAL) 7 %; MONOCYTES % (MANUAL) 3 %; NEUTROPHILS % (MANUAL) 89 %
[2022-02-04 14:30] LABS: ELLIPT/OVALOCYTES SLIGHT; HYPOCHROMASIA MARKED; MICROCYTOSIS MARKED
[2022-02-04] MEDS ORDERED: NS IV 500 ML 500 ML ONE ×3 (14:34→23:20)
--- NOTE | 2022-02-04 15:17 | ED General ---
General Chief Complaint: General Problems/Pain Stated Complaint: LOW HEMOGLOBIN 3.3 Nursing Triage Note: PT AMB TO ED BY POV WITH C/O LOW HGB. PT REPORTS SHE WAS SEEN TODAY AT [facility] AND HAD BLOOD WORK DONE AND WAS TOLD TO COME TO THE ER BECASUE HER HGB WAS 3.3. REPORTS SHE HAS BEEN MORE TIRED THAN NORMAL AND FEELS "BREATHLESS" WHEN AMB. DENIES SENIOR, CP, N/V/D, BLOOD IN STOOL, OR ANY OTHER SX AT THIS TIME. Source of Information: Patient Exam Limitations: No Limitations History of Present Illness Date Seen by Provider: Feb 04, 2022 Time Seen by Provider: 13:35 Initial Comments This is a 47 yo female who presented to the ER from [facility] for c/o HGB of 3.3. Patient was seen today to establish care and was found to have low HGB on her routine lab work. She reports fatigue over the past year and will occasionally feel "breathless" with activity. Denies use of anticoagulants, vitamin supplements, trauma, dark, tarry, or bloody stools. Does have "very heavy" menstrual cycles. She denies headache, cough, fever, chills, nausea, vomiting, chest pain, shortness of breath, abdominal pain., dysuria, or hematuria. Allergies and Home Medications Allergies Coded Allergies: No Known Drug Allergies (Unverified , 08/17/11) Patient Home Medication List Home Medication List Reviewed: Yes Ferrous Sulfate (Ferrous Sulfate) 325 Mg (65 Mg Iron) Tablet, 325 MG PO BID Prescribed by: MOY PELAYO on 02/05/221742 Pantoprazole Sodium (Pantoprazole Sodium) 40 Mg Tablet.dr, 40 MG PO DAILY Prescribed by: MOY PELAYO on 02/05/221741 Review of Systems Review of Systems Constitutional: see HPI EENTM: no symptoms reported Respiratory: no symptoms reported Cardiovascular: no symptoms reported Gastrointestinal: no symptoms reported Genitourinary: other (heavy menstration ) LMP: Dec 10, 2021 Past Eujrynq-Ckqopz-Trmmwe Hx Patient Social History Tobacco Use?: Yes Tobacco type used: Cigarettes Smoking Status: Current Everyday Smoker Use of E-Cig and/or Vaping dev: No Substance use?: No Alcohol Use?: No Pt feels they are or have been: No Immunizations Up To Date Influenza Vaccine Up-to-Date: No; Not Current Past Medical History Surgery/Hospitalization HX: REFLUX Surgeries: Yes (TUBALIZATION) Musculoskeletal: Yes (JUVENILE RHUEMATOID ARTHRITIS) Physical Exam Vital Signs Vital Signs - First Documented 02/04/22 13:32 Temp 36.7 Pulse 93 Resp 20 B/P (MAP) 125/69 (87) Pulse Ox 100 O2 Delivery Room Air Capillary Refill : Less Than 3 Seconds Height, Weight, BMI Height: 5'5.00" Weight: 147lbs. 9.6oz. 66.905324nd; 27.00 BMI Method:Stated General Appearance: No Apparent Distress, WD/WN Eyes: Bilateral Eye PERRL, Bilateral Eye EOMI, Bilateral Eye Conjunctivae Pale HEENT: Pharynx Normal, Moist Mucous Membranes, Pale Conjunctivae (L), Pale Conjunctivae (R) Neck: Full Range of Motion, Normal Inspection, Non Tender Respiratory: Lungs Clear, Normal Breath Sounds, No Accessory Muscle Use, No Respiratory Distress Cardiovascular: Regular Rate, Rhythm, No Edema, Normal Peripheral Pulses Gastrointestinal: Normal Bowel Sounds, Non Tender, Soft Back: Normal Inspection Extremity: Normal Capillary Refill, Normal Inspection, Normal Range of Motion Neurologic/Psychiatric: Alert, Oriented x3, No Motor/Sensory Deficits, Normal Mood/Affect Skin: Normal Color, Warm/Dry Progress/Results/Core Measures Suspected Sepsis SIRS Temperature: Pulse: 92 Respiratory Rate: 22 Laboratory Tests 02/04/22 13:35: White Blood Count 13.7H Blood Pressure 108 /65 Mean: 79 Laboratory Tests 02/04/22 13:35: Creatinine 0.75, Platelet Count 108L, Total Bilirubin 0.4 Results/Orders Lab Results Laboratory Tests Test 02/04/22 13:35 Range/Units White Blood Count 13.7 H 4.3-11.0 10^3/uL Red Blood Count 2.45 L 3.80-5.11 10^6/uL Hemoglobin 3.8 *L 11.5-16.0 g/dL Hematocrit 16 *L 35-52 % Mean Corpuscular Volume 63 L 80-99 fL Mean Corpuscular Hemoglobin 16 L 25-34 pg Mean Corpuscular Hemoglobin Concent 25 L 32-36 g/dL Red Cell Distribution Width 27.6 H 10.0-14.5 % Platelet Count 108 L 130-400 10^3/uL Mean Platelet Volume 9.0-12.2 fL Immature Granulocyte % (Auto) 1 % Neutrophils (%) (Auto) 86 H 42-75 % Lymphocytes (%) (Auto) 6 L 12-44 % Monocytes (%) (Auto) 7 0-12 % Eosinophils (%) (Auto) 1 0-10 % Basophils (%) (Auto) 0 0-10 % Neutrophils # (Auto) 11.8 H 1.8-7.8 10^3/uL Lymphocytes # (Auto) 0.8 L 1.0-4.0 10^3/uL Monocytes # (Auto) 0.9 0.0-1.0 10^3/uL Eosinophils # (Auto) 0.1 0.0-0.3 10^3/uL Basophils # (Auto) 0.0 0.0-0.1 10^3/uL Immature Granulocyte # (Auto) 0.1 0.0-0.1 10^3/uL Neutrophils % (Manual) 89 % Lymphocytes % (Manual) 7 % Monocytes % (Manual) 3 % Eosinophils % (Manual) 1 % Clumped Platelets Percent Immature Platelet Fraction 3.7 0.0-7.6 % Hypochromasia MARKED Microcytosis MARKED Macrocytosis SLIGHT Elliptocytes SLIGHT Sodium Level 139 135-145 MMOL/L Potassium Level 3.3 L 3.6-5.0 MMOL/L Chloride Level 106 98-107 MMOL/L Carbon Dioxide Level 20 L 21-32 MMOL/L Anion Gap 13 5-14 MMOL/L Blood Urea Nitrogen 10 7-18 MG/DL Creatinine 0.75 0.60-1.30 MG/DL Estimat Glomerular Filtration Rate 99 BUN/Creatinine Ratio 13 Glucose Level 113 H 70-105 MG/DL Calcium Level 8.8 8.5-10.1 MG/DL Corrected Calcium 8.7 8.5-10.1 MG/DL Total Bilirubin 0.4 0.1-1.0 MG/DL Aspartate Amino Transf (AST/SGOT) 18 5-34 U/L Alanine Aminotransferase (ALT/SGPT) 18 0-55 U/L Alkaline Phosphatase 72 40-136 U/L Total Protein 7.3 6.4-8.2 GM/DL Albumin 4.1 3.2-4.5 GM/DL My Orders Orders - SYLVIA HERNÁNDEZ [employer] ARCHITECT Ed Iv/Invasive Line Start (02/04/22 13:27) Cbc And Manual Diff (02/04/22 13:27) Comprehensive Metabolic Panel (02/04/22 13:27) Type And Screen (02/04/22 13:27) Red Cells Leukocytes Reduced (02/04/22 14:16) Ns Iv 500 Ml (Sodium Chloride 0.9%) (02/04/22 14:34) Medications Given in ED Current Medications Medications Dose Ordered Sig/Scar Route Start Time Stop Time Status Last Admin Dose Admin Sodium Chloride 500 ml @ [facility] ONCE .ROUTE 02/04/22 14:34 02/04/22 14:36 DC 02/04/22 14:57 0 MLS/HR Vital Signs/I&O 02/04/22 02/04/22 02/04/22 02/04/22 13:32 14:50 14:55 15:00 Temp 36.7 37.0 36.8 36.8 Pulse 93 96 95 95 Resp 20 20 24 26 B/P (MAP) 125/69 (87) 113/65 109/66 109/65 Pulse Ox 100 100 100 O2 Delivery Room Air Room Air Room Air 02/04/22 15:05 Temp 36.7 Pulse 92 Resp 22 B/P (MAP) 108/65 Pulse Ox 100 O2 Delivery Room Air Capillary Refill : Less Than 3 Seconds Blood Pressure Mean: 79 Progress Note : Progress Note Anemia well compensated, no acute distress. Has had increased bleeding with menstrual cycle over past three months. Discussed with Dr. Pelayo. Will admit observation and transfuse PRBC's. Consulted with general surgeon Dr. Mccall, no additional orders. Departure Communication (Admissions) Time/Spoke to Admitting Phy: 15:10 Dr. Pelayo Time/Spoke to Consulting Phy: 15:26 Dr. Mccall consulted. Impression Primary Impression: Microcytic anemia Disposition: ADMITTED INPATIENT Condition: Stable Admissions Decision to Admit Reason: Admit from ER (General) Decision to Admit/Date: Feb 04, 2022 Time/Decision to Admit Time: 15:00 Departure-Patient Inst. Referrals: NO,LOCAL PHYSICIAN (PCP/Family) Primary Care Physician Scripts Ferrous Sulfate (Ferrous Sulfate) 325 Mg (65 Mg Iron) Tablet 325 MG PO BID, #60 TAB 0 Refills Prov: MOY PELAYO MD 02/05/22 Pantoprazole Sodium (Pantoprazole Sodium) 40 Mg Tablet. 40 MG PO DAILY, #30 TAB 0 Refills Prov: MOY PELAYO MD 02/05/22 SYLVIA HERNÁNDEZ APRN Feb 04, 2022 15:17
[2022-02-04 15:52] LABS: ABSOLUTE RETIC # 48 10e9/uL (24-90); RETICULOCYTE % 1.38 % (0.50-2.40)
--- NOTE | 2022-02-04 16:10 | History & Physical ---
SERINA RÍOS 02/04/22 1610: HPI History of Present Illness: Keena is a 47 y F with a pmh of Anemia presented to the ED after an abnormal Hb reading at clinic earlier today. She states she was having routine labs done today at [facility] and they found her hemoglobin to be 3.3 so she was told to immediately come to the ER. She states she has been experiencing weakness and SOB on exertion for over one year now. She states her weakness is relieved by rest but she has noticed she has been sleeping more recently, sometimes greater than 12 hours per day. She also noted she has gained 13 lbs in the last month. She states she also has a history of heavy periods and has noticed heavier than usual periods the last two to three months. She states she has to change her feminine products at least every hour and her periods last 7-9 days. Source: patient Exam Limitations: no limitations Time Seen by Provider: 16:10 Attending Physician No,Local Physician PCP Admitting Physician: Aditi Morales MD Attending Physician: Aditi Morales MD Consult Date of Admission Feb 04, 2022 at 15:39 Home Medications Home Medications Reviewed patient Home Medication Reconciliation performed by pharmacy medication reconciliations apartment maintenance technician and/or nursing. Patients Allergies have been reviewed. Allergies Coded Allergies: No Known Drug Allergies (Unverified , 08/17/11) IFD-Mxybqz-Hihmku Hx Patient Social History Smoking Status: Current Everyday Smoker Recent Hopitalizations: Yes Alcohol Use?: No Tobacco type used: Cigarettes (15 cigarettes per day q 30 yrs) Have you traveled recently?: No Immunizations Up To Date Influenza Vaccine Up-to-Date: No; Not Current Past Medical History Anemia GERD hx of Juveline RA, kidney stones Family Medical History Significant Family History: No Pertinent Family Hx (States she is adopted and is unsure of Family History.) Review of Systems ([facility]) Constitutional: weakness, weight gain EENTM: blurred vision (pt. notes worsening vision); No epistaxis Respiratory: dyspnea on exertion, short of breath Cardiovascular: palpitations Gastrointestinal: heartburn Genitourinary: other (hx of heavy menstrual bleeding) : No LMP: Jan 20, 2022 Musculoskeletal: no symptoms reported Skin: no symptoms reported Reviewed Test Results Reviewed Test Results Lab Laboratory Tests 02/04/22 13:35 Physical Exam-([facility]) Physical Exam Vital Signs VS - Last 72 Hours, by Label 02/04/22 02/04/22 02/04/22 02/04/22 13:32 14:50 14:55 15:00 Temp 36.7 37.0 36.8 36.8 Pulse 93 96 95 95 Resp 20 20 24 26 B/P (MAP) 125/69 (87) 113/65 109/66 109/65 Pulse Ox 100 100 100 O2 Delivery Room Air Room Air Room Air 02/04/22 02/04/22 15:05 15:20 Temp 36.7 36.7 Pulse 92 91 Resp 22 18 B/P (MAP) 108/65 111/65 Pulse Ox 100 100 O2 Delivery Room Air Capillary Refill : Less Than 3 Seconds General Appearance: no apparent distress HEENT: PERRL/EOMI; No scleral icterus (R); pale conjunctivae (R), pale conjunctivae (L) Neck: supple Respiratory: lungs clear, normal breath sounds, no accessory muscle use Cardiovascular: no edema, systolic murmur (LSB 1/6 ) Gastrointestinal: normal bowel sounds, non tender, soft, no pulsatile mass Extremities: no pedal edema, no calf tenderness Neurologic/Psychiatric: no motor/sensory deficits, alert, normal mood/affect, oriented x 3 Skin: normal color, warm/dry Assessment/Plan Assessment/Plan Admission Dx Anemia Assessment & Plan 1. Microcytic Anemia likely due to chronic blood loss w/ thrombocytopenia - CBC w/diff, Hb 3.8 Hct 16, Plt 108 - IVNS - Ferritin/TIBC, Fe, Folate, B12, Peripheral smear, reticulocyte count - Type and Cross, blood given in ED - FOBT - Pelvic U/S, Pap, Endometrial biopsy 2. GERD - IV PPI, takes Omeprazole OTC. - Consult surgery if anemia is unstable for upper endoscopy and colonoscopy. 3. Murmur - Echo - Consult Cardiology 4. Hypokalemia - monitor on repeat BMP - replete if falls below 3.0 ADITI MORALES MD 02/04/222050: Home Medications Allergies Coded Allergies: No Known Drug Allergies (Unverified , 08/17/11) Assessment/Plan Assessment/Plan Admission Status: Observation Supervisory-Addendum Brief Verification & Attestation Participated in pt care: history, MDM, physical Personally performed: exam, history, MDM, supervision of care Care discussed with: Medical Student Procedures: n/a I personally saw and examined patient and confirmed the history and did my own physical exam which confirmed that documented by the medical student. Suspect chronic blood loss, possibly menses related, but given severity of anemia needs work-up for other causes as well, discussed with patient even if hemoglobin stable after transfusions, will need outpatient EGD/colo and to update all appropriate cancer screenings and consider endometrial biopsy. Suspect heart murmur is flow related, monitor for now. SERINA RÍOS Feb 04, 2022 16:10 ADITI MORALES MD Feb 04, 2022 20:51
[2022-02-04 17:42] LABS: WHITE BLOOD COUNT 13.1 10^3/uL (4.3-11.0)
[2022-02-04 17:44] LABS: MEAN CORPUSCULAR HEMOGLOBIN 18 pg (25-34); MEAN CORPUSCULAR HGB CONC 26 g/dL (32-36); MEAN CORPUSCULAR VOLUME 67 fL (80-99); PLATELET COUNT 106 10^3/uL (130-400)
[2022-02-04 17:49] LABS: HEMATOCRIT 20 % (35-52); HEMOGLOBIN 5.2 g/dL (11.5-16.0)
--- NOTE | 2022-02-04 21:00 | Progress Note-Pre Operative ---
Pre-Operative Progress Note Date of Available H&P: Feb 04, 2022 Date H&P Reviewed: Feb 04, 2022 Time H&P Reviewed: 21:00 History & Physical: No changes noted Pre-Operative Diagnosis: anemia with hx GERD KENNY BAER MD Feb 04, 2022 21:00
--- NOTE | 2022-02-04 22:22 | CONSULTATION REPORT ---
DATE OF SERVICE: ADMITTING PHYSICIAN: Dr. Morales. HISTORY OF PRESENT ILLNESS: The patient is a 47-year-old female with a longstanding history of anemia; however, she cannot elaborate the reason for the anemia. She underwent routine labs at [facility] and her hemoglobin was found to be 3.3 and she was instructed to go to the Emergency Department where the labs were repeated and her hemoglobin was found to be 3.9. The patient seems to be well compensated due to her ability to function appropriately and verbalize without any difficulty. She states that she has had weakness and exertional shortness of breath. She also reports that she has been sleeping more lately. She states that she has been having heavy menstrual periods for the past 3 months and the likely source of her worsening anemia. She also reports that she has had a longstanding history of gastroesophageal reflux disease and takes omeprazole 20 mg daily. She does not report any episodes of nausea, no vomiting as well as no hematemesis, no coffee ground emesis. She does have some constipation at times, but does not report any red blood per rectum nor any dark tarry stools. PAST MEDICAL HISTORY: Anemia, gastroesophageal reflux disease, menorrhagia, juvenile rheumatoid arthritis, nephrolithiasis. PAST SURGICAL HISTORY: None. ALLERGIES: No known drug allergies. MEDICATIONS: Prednisone 10 mg daily, cefuroxime 500 mg daily, ibuprofen p.r.n. SOCIAL HISTORY: Positive smoke 30 pack years. Negative alcohol. FAMILY HISTORY: The patient is adopted. VITAL SIGNS: Temperature 36.5, blood pressure 116/65, pulse 84, respirations 20, pulse ox 100% on room air. REVIEW OF SYSTEMS: Well-nourished female currently in no acute distress. She is not experiencing any shortness of breath or difficulty breathing. No chest pain, palpitations, diaphoresis. No nausea, vomiting, with epigastric burning sensation as well as crampy pain. No hematemesis, no coffee ground emesis. No red blood per rectum, no dark tarry stools. No fever, chills, no recent inadvertent weight loss. All other review of systems negative. PHYSICAL EXAMINATION: CHEST: Clear. Good breath sounds bilaterally. HEART: Regular, no murmurs. EXTREMITIES: No lower extremity edema, negative Homans sign. HEENT: No scleral icterus. NECK: No cervical lymphadenopathy. ABDOMEN: Soft, nondistended. There is mild discomfort in the epigastric region upon deep palpation. SKIN: Warm, dry. LABORATORY DATA: WBC 13.1, hemoglobin 5.2, hematocrit 20, platelets 106. BUN 10, creatinine 0.75. ASSESSMENT AND PLAN: A 47-year-old female with history of chronic anemia with acute exacerbation of anemia, likely secondary to menorrhagia; however, she also does have a history of worsening gastroesophageal reflux disease and on this admission, we will proceed with an EGD. Job ID: [id number] DocumentID: [id number] Dictated Date: 02/04/2022 21:06:28 Manager Dish Date: 02/04/2022 22:22:06 Dictated By: KENNY BAER MD
[2022-02-04 22:55] LABS: HEMATOCRIT 21 % (35-52); MEAN CORPUSCULAR HEMOGLOBIN 20 pg (25-34); MEAN CORPUSCULAR HGB CONC 28 g/dL (32-36); MEAN CORPUSCULAR VOLUME 69 fL (80-99); PLATELET COUNT 70 10^3/uL (130-400); WHITE BLOOD COUNT 8.7 10^3/uL (4.3-11.0)
[2022-02-05] VITALS (11 sets, daily range): BP systolic 85–125; BP diastolic 50–83
[2022-02-05 02:49] LABS: HEMATOCRIT 24 % (35-52); MEAN CORPUSCULAR HEMOGLOBIN 21 pg (25-34); MEAN CORPUSCULAR HGB CONC 29 g/dL (32-36); MEAN CORPUSCULAR VOLUME 73 fL (80-99); PLATELET COUNT 73 10^3/uL (130-400); WHITE BLOOD COUNT 8.1 10^3/uL (4.3-11.0)
[2022-02-05 07:25] LABS: HEMATOCRIT 25 % (35-52); HEMOGLOBIN 7.3 g/dL (11.5-16.0); MEAN CORPUSCULAR HEMOGLOBIN 22 pg (25-34); MEAN CORPUSCULAR HGB CONC 30 g/dL (32-36); MEAN CORPUSCULAR VOLUME 72 fL (80-99); PLATELET COUNT 62 10^3/uL (130-400); WHITE BLOOD COUNT 7.6 10^3/uL (4.3-11.0)
[2022-02-05] MEDS ORDERED: IRON SUCROSE 200 MG/10 ML (VENOFER) VIAL IV NR (07:30)
[2022-02-05 07:46] LABS: CALCIUM 8.6 MG/DL (8.5-10.1); CREATININE SERUM 0.75 MG/DL (0.60-1.30); POTASSIUM 3.8 MMOL/L (3.6-5.0)
[2022-02-05] MEDS ORDERED: ACETAMINOPHEN 500 MG TAB (TYLENOL) PO PRN (09:45)
[2022-02-05] MEDS ORDERED: OMEP-401 PO (10:20)
[2022-02-05 10:56] LABS: MEAN CORPUSCULAR VOLUME 72 fL (80-99)
[2022-02-05 10:59] LABS: HEMATOCRIT 24 % (35-52); MEAN CORPUSCULAR HEMOGLOBIN 21 pg (25-34); MEAN CORPUSCULAR HGB CONC 29 g/dL (32-36); WHITE BLOOD COUNT 6.4 10^3/uL (4.3-11.0)
[2022-02-05 11:00] LABS: PLATELET COUNT 67 10^3/uL (130-400)
[2022-02-05] MEDS ORDERED: PROPOFOL INJECTION 50 ML IV ONE (13:26)
[2022-02-05] MEDS ORDERED: LACTATED RINGERS 1,000 ML IV STA (13:26)
[2022-02-05] MEDS ORDERED: HURRICAINE EXT TUBE (BENZOCAINE) XX PRN (13:30)
[2022-02-05] MEDS ORDERED: LIDOCAINE JELLY 2% 6 ML SYRINGE MM PRN (13:30)
[2022-02-05] MEDS ORDERED: LACTATED RINGERS 1,000 ML IV ONE (13:32)
--- NOTE | 2022-02-05 14:39 | Diagnostic Imaging Report ---
PROCEDURE: Pelvic comp/transvaginal sonogram. TECHNIQUE: Complete transabdominal and transvaginal pelvic ultrasound was performed. In addition, limited pelvic Doppler was performed. INDICATION: Heavy bleeding and anemia. FINDINGS: Uterus is anteverted measuring 11.0 x 6.2 x 6.7 cm. There is an area of myometrial heterogeneity in the region of the fundus suggestive of a fibroid. This measures 5.1 x 5.1 x 4.5 cm. Endometrium appears to be very poorly visualized, and an accurate measurement cannot be obtained. Right ovary measures 4.3 x 3.1 x 3.0 cm, and the left ovary measures 3.1 x 1.6 x 3.7 cm. Right ovary does contain several cysts, largest 2.6 x 3.1 x 2.6 cm. Left ovary contains a 2.5 x 2.3 x 4.4 cm cyst. There is blood flow to both ovaries. Small amount of free fluid posteriorly is noted. IMPRESSION: 1. Fundal uterine mass suggestive of a fibroid. The endometrium was poorly visualized. 2. Bilateral ovarian cysts. Dictated by: Dictated on workstation # [id number]
[2022-02-05] MEDS ORDERED: PANT40TA52 PO (17:42)
[2022-02-05] MEDS ORDERED: FERR325T18 PO (17:43)
--- NOTE | 2022-02-05 17:44 | Discharge Summary ---
Discharge Inst-[facility] Discharge Medications New, Converted or Re-Newed RX: Transmitted to Pharmacy New Medications: Ferrous Sulfate (Ferrous Sulfate) 325 Mg (65 Mg Iron) Tablet 325 MG PO BID, #60 TAB 0 Refills Pantoprazole Sodium (Pantoprazole Sodium) 40 Mg Tablet.dr 40 MG PO DAILY, #30 TAB 0 Refills Discontinued Medications: Ibuprofen (Advil) 200 Mg Tablet 600 MG PO Q6H PRN for PAIN-MILD, TAB Omeprazole (Omeprazole) 20 Mg Tab.rap.dr 20 MG PO DAILY, EA Patient Instructions Goal/Follow Up Appt: Follow up within a week of discharge. Patient Instructions: Get a repeat CBC at [facility] within the week. Return to [facility] For: Weakness, excessive bleeding, dizziness, shortness of breath Activity & Diet Discharge Diet: Regular Diet Activity as Tolerated: Yes MOY PELAYO MD Feb 05, 2022 17:44
--- NOTE | 2022-02-05 20:48 | OPERATIVE REPORT ---
DATE OF SERVICE: 02/05/2022 ADMITTING PHYSICIAN: Dr. Jeremie Morales. PREOPERATIVE DIAGNOSIS: Anemia. POSTOPERATIVE DIAGNOSES: Reflux esophagitis, [place] grade B, moderate-sized hiatal hernia approximately 3 cm in size, moderate gastritis. No active bleeding sources. PROCEDURE: EGD with biopsy. SURGEON: Kenny Baer MD. ANESTHESIA: Monitored anesthesia care. ESTIMATED BLOOD LOSS: Minimal. FINDINGS: Same as postoperative diagnosis. DISPOSITION: The patient tolerated the procedure well. INDICATIONS: The patient is a 47-year-old female with a longstanding history of microcytic anemia. She has had a longstanding history of menorrhagia, which causes her hemoglobin to become consistently low. She states that she has had multiple episodes of her hemoglobin within the 3 to 5 range. Again, she was worked up and found to have a hemoglobin of 3.9 and awake and alert indicating that her body is chronically compensated for her anemia. She again reports that she is having menorrhagia; however, we were consulted to rule out an upper gastrointestinal source due to her history of gastroesophageal reflux disease, which has worsened in the past few years. She does not report any episodes of nausea, no vomiting as well as no hematemesis, no coffee ground emesis. DESCRIPTION OF PROCEDURE: The patient was brought to the endoscopy suite, laid in left lateral decubitus position. After adequate IV pain and sedative medications and monitored anesthesia care, the mouthpiece was applied. The endoscope was placed in the mouth, visualizing the pharynx and hypopharyngeal region. Vocal cords, epiglottis and vallecula identified and appeared to be normal. The endoscope was then gently abated esophageal opening and esophagus insufflated. The endoscope was then advanced through the first, second and third portion of esophagus at the level of the GE junction, reflux esophagitis, [place] grade B identified. No ulcers or strictures identified in this region and a biopsy was taken with good visualization of good hemostasis. The endoscope was then advanced in the stomach. The endoscope retroflexed, visualizing a moderate-sized type 1 sliding hiatal hernia approximately 3 cm in size. The GE junction would move with inspiration and expiration as well as with frequent regurgitation of air. There was a moderate severity gastritis. No formal ulcerations, polyps, or any neoplasms. A biopsy was taken of the antrum to rule out H. pylori with visualization of good hemostasis. The endoscope was then advanced through the pylorus into the first and second portion of the duodenum, which appeared normal with no ulcerations or any active bleeding sources. The endoscope was then slowly withdrawn while taking a second look and suctioning of residual air with no additional findings. The patient tolerated the procedure well. We will recommend the necessary lifestyle and dietary accommodation including small and more frequent meals, avoidance of eating at night as well as head elevation while lying supine. She also needs to avoid caffeinated beverages, spicy, greasy and acidic foods as well as take a PPI acid cab starter. She is currently on what sounds to be an H2 antagonist. We will start her on omeprazole 40 mg daily. Job ID: [id number] DocumentID: [id number] Dictated Date: 02/05/2022 14:16:31 [employer] Date: 02/05/2022 20:47:37 Dictated By: KENNY BAER MD
== END 2022-02-05 17:41 | disposition home or self-care (01) ==
LOC: EDUNIT# 13:24 → ER 13:27 → 4TH 15:39 → UNDOADMOB 15:39 → INTOOBSV 15:39 → UNDOADMOB 16:45 → 4TH 16:45 → UNDODISOB 02-05 17:41
PROVIDERS: ADMIT Family Medicine; ATTEND Family Medicine
DX: K21.00 Gastro-esophageal reflux disease with esophagitis, without bleeding (principal); K44.9 Diaphragmatic hernia without obstruction or gangrene; K29.70 Gastritis, unspecified, without bleeding; F17.210 Nicotine dependence, cigarettes, uncomplicated; E87.6 Hypokalemia; Z79.899 Other long term (current) drug therapy; D50.9 Iron deficiency anemia, unspecified
CPT/HCPCS: 36430 ×2; 43239; 76830; 76856; 80048; 80053; 82728; 83540; 83550; 84443; 84703; 85007; 85027 ×2; 85045; 85055; 86850; 86900; 86901; 86920; 87081; 88305; 96360; 96375; 99285; G0378; P9016; 36415